=== PATIENT | male | born 1955 | race Caucasian/White ===

== ENCOUNTER 2017-08-23 15:17 | Observation (INO) | payer OTHER ==
[~2017-08-23] VITALS: Ht 177.8 cm; Wt 150.1 kg
[2017-08-23] MEDS ORDERED: LISI1TAB5 PO (15:53)
[2017-08-23] MEDS ORDERED: CIPR250T27 PO (15:53)
[2017-08-23] MEDS ORDERED: MELO15TA24 PO (15:53)
[2017-08-23] MEDS ORDERED: TAMS-11 PO (15:53)
[2017-08-23] MEDS ORDERED: SODIUM CHLORIDE 0.9% 1,000ML IVBOLUS ONE (16:30)
[2017-08-23] MEDS ORDERED: DILTIAZEM 125 MG in SODIUM CHLORIDE 0.9% 100 ML IV PRN (16:30)
[2017-08-23] MEDS ORDERED: SODIUM CHLORIDE FLUSH 10ML SYR IVF ONE (16:30)
[2017-08-23] MEDS ORDERED: DILTIAZEM 5 MG/ML, 5ML IV ONE (16:30)
[2017-08-23 16:38] LABS: HEMATOCRIT 51.4 % (39.2-51.8); HEMOGLOBIN 17.1 g/dL (13.7-18.0); WHITE BLOOD COUNT 9.3 x10^3/uL (3.4-10)
[2017-08-23] MEDS ORDERED: DILTIAZEM 5 MG/ML, 5ML ONE (16:46)
[2017-08-23 16:50] LABS: BLOOD UREA NITROGEN 15 mg/dL (7-18)
[2017-08-23 16:51] LABS: ASPARTATE AMINO TRANSFERASE 23 U/L (15-37)
[2017-08-23 17:03] LABS: IS PT STATUS REG ER OR PRE ER? YES
[2017-08-23] MEDS ORDERED: ENOXAPARIN 150 MG/ML SQ SCH (18:30)
[2017-08-23] MEDS ORDERED: ENOXAPARIN 80 MG/0.8 ML ONE (18:36)
[2017-08-23] MEDS ORDERED: DOCUSATE 100 MG CAPSULE PO PRN (19:30)
[2017-08-23] MEDS ORDERED: ONDANSETRON 2MG/ML, 2ML IVPush PRN (19:30)
[2017-08-23] MEDS ORDERED: ACETAMINOPHEN 325 MG TABLET PO PRN (19:30)
[2017-08-23 20:01] VITALS: BP 102/67
[2017-08-23] MEDS: SODIUM CHLORIDE 0.9% 1,000 ML IV SCH (21:18)
[2017-08-23] MEDS: METOPROLOL TARTRATE 25 MG TABLET PO SCH (21:19)
[2017-08-23 21:40] LABS: PATH.CAST-FLAG NOT PRESENT; SPERM-FLAG NOT PRESENT; SRC-FLAG NOT PRESENT; XTAL-FLAG NOT PRESENT; YLC-FLAG NOT PRESENT
[2017-08-24] MEDS ORDERED: DILTIAZEM 125 MG in SODIUM CHLORIDE 0.9% 100 ML IV PRN
[2017-08-24 01:26] VITALS: BP 97/59
[2017-08-24] MEDS: METOPROLOL TARTRATE 25 MG TABLET PO SCH ×4 (03:39→21:07)
[2017-08-24] MEDS: ASPIRIN 325 MG TABLET EC PO SCH (06:26)
[2017-08-24 06:39] LABS: BLOOD UREA NITROGEN 20 mg/dL (7-18)
[2017-08-24 09:50] VITALS: BP 102/64
[2017-08-24] MEDS: TAMSULOSIN 0.4 MG CAP.ER.24H PO SCH (09:58)
[2017-08-24] MEDS: LISINOPRIL 20 MG TABLET PO SCH (09:58)
[2017-08-24] MEDS: HYDROCHLOROTHIAZIDE 12.5 MG CAPSULE PO SCH (09:59)
[2017-08-24 11:25] LABS: IS PT STATUS REG ER OR PRE ER? NO
[2017-08-24] MEDS ORDERED: FLU VACC QS2017-18 (36MOS+) UP/PF 0.5 ML IM-VACC ONE (13:30)
[2017-08-24] MEDS: SODIUM CHLORIDE 0.9% 1,000 ML IV SCH (13:37)
[2017-08-24] MEDS ORDERED: ENOXAPARIN 40 MG/0.4 ML SQ SCH (15:30)
[2017-08-24 15:57] VITALS: BP 111/68
[2017-08-24 18:35] VITALS: BP 102/62
[2017-08-24 21:07] VITALS: BP 110/75
[2017-08-25 01:12] VITALS: BP 116/75
[2017-08-25 03:18] VITALS: BP 107/61
[2017-08-25] MEDS: METOPROLOL TARTRATE 25 MG TABLET PO SCH ×2 (03:19→08:03)
[2017-08-25 07:30] VITALS: BP 101/70
[2017-08-25] MEDS: HYDROCHLOROTHIAZIDE 12.5 MG CAPSULE PO SCH (08:03)
[2017-08-25] MEDS: TAMSULOSIN 0.4 MG CAP.ER.24H PO SCH (08:04)
[2017-08-25] MEDS: ASPIRIN 325 MG TABLET EC PO SCH (08:04)
[2017-08-25] MEDS: LISINOPRIL 20 MG TABLET PO SCH (08:04)
[2017-08-25] MEDS ORDERED: METO25TA35 PO (09:31)
[2017-08-25] MEDS ORDERED: ASPI-650 PO (09:31)
== END 2017-08-25 11:55 | disposition home or self-care (01) ==
LOC: ED 18:01 → EDIP 18:02 → INTOOBSV 18:02 → ED 18:22 → SUATTDRO 18:28 → EDIP 19:39 → 5SO 19:39 → INTOOBSV 08-24 19:27 → OBSVTOIN 08-24 19:27 → 5SO 08-24 20:35 → DCLOUNGE 08-25 11:44
PROVIDERS: ADMIT Hospitalist; ATTEND Hospitalist
DX: I48.91 Unspecified atrial fibrillation (principal); I48.92 Unspecified atrial flutter; I11.9 Hypertensive heart disease without heart failure; E66.01 Morbid (severe) obesity due to excess calories; E44.0 Moderate protein-calorie malnutrition; D68.69 Other thrombophilia; Z85.46 Personal history of malignant neoplasm of prostate
CPT/HCPCS: 36415; 71010; 80048; 80053; 80061; 81001; 83735; 83880; 84439; 84443; 84481; 84484; 85025; 85610; 85730; 87086; 90471; 90686; 93005; 96361; 96365; 96366; 96372; 96375; 99291; C8929; G0378; J1650; J7030